=== PATIENT | female | born 1985 | race Caucasian/White ===

== ENCOUNTER 2021-12-12 10:23 | Emergency (ER) | payer MEDICAID ==
[~2021-12-12] VITALS: Ht 162.6 cm; Wt 54.5 kg
[2021-12-12] MEDS ORDERED: PROPARACAINE HCL 0.5% 15 ML OPHTHALMIC SOLUTION OD ONE (11:00)
[2021-12-12] MEDS ORDERED: FLUORESCEIN SODIUM 1 MG STRIP OD ONE (11:00)
[2021-12-12] MEDS ORDERED: OFLOXACIN 0.3% 5 ML OPHTHALMIC SOLUTION OD ONE (13:15)
[2021-12-12 13:45] VITALS: BP 130/84
== END 2021-12-12 14:05 | disposition home or self-care (01) ==
LOC: EMS 10:28
DX: H57.89 Other specified disorders of eye and adnexa (principal); F15.90 Other stimulant use, unspecified, uncomplicated; F17.210 Nicotine dependence, cigarettes, uncomplicated
CPT/HCPCS: 99284; Z7502; Z7610